=== PATIENT | male | born 1990 | race Two or more races ===

== ENCOUNTER 2017-12-31 19:19 | Emergency (ER) | payer BC ==
[~2017-12-31] VITALS: Ht 185.4 cm; Wt 124.3 kg
[2017-12-31 19:39] VITALS: BP 131/97
[2017-12-31] MEDS ORDERED: METHOCARBAMOL 500 MG TAB PO ONE (22:15)
[2017-12-31] MEDS ORDERED: KETOROLAC TROMETH 60MG/2ML VIAL IM ONE (22:15)
== END 2017-12-31 22:45 | disposition home or self-care (01) ==
LOC: ER 19:19
DX: M54.32 Sciatica, left side (principal)
CPT/HCPCS: 96372; 99283; J1885

== ENCOUNTER 2018-04-04 11:57 | Emergency (ER) | payer BC ==
[~2018-04-04] VITALS: Ht 182.9 cm; Wt 127.0 kg
[2018-04-04 12:06] VITALS: BP 134/82
[2018-04-04] MEDS ORDERED: KETOROLAC TROMETH 60MG/2ML VIAL IM ONE (12:45)
[2018-04-04] MEDS ORDERED: METHOCARBAMOL 500 MG TAB PO ONE (12:45)
== END 2018-04-04 13:55 | disposition home or self-care (01) ==
LOC: ER 11:59
DX: M54.5 Low back pain (principal)
CPT/HCPCS: 72100; 96372; 99284; J1885